=== PATIENT | male | born 1955 | race Caucasian/White ===

== ENCOUNTER 2018-10-06 20:56 | Emergency (ER) | payer OTHER ==
--- NOTE | 2018-10-06 21:17 | EDPHY ---
H & P Stated Complaint: multiple puncture wounds left hand from catbite Time Seen by Provider: 10/06/18 21:08 HPI/ROS: CHIEF COMPLAINT: Cat bite HISTORY OF PRESENT ILLNESS: Patient is a 63-year-old man whose cat bit him on the left hand. He has 3-4 small puncture wounds to the dorsum of his left hand. He is confident that the cat's teeth did not break and declines x-rays. He is concerned because he had a previous cat bite a few years ago the got infected. He states that both his mom and dad have also had cat bite wounds that have been infected. The bite occurred about 1 hour ago. Severity: Moderate Modifying factors: None REVIEW OF SYSTEMS: Constitutional: denies: chills, fever, recent illness, recent injury EENTM: denies: blurred vision, double vision, nose congestion Respiratory: denies: cough, shortness of breath Cardiac: denies: chest pain, irregular heart rate, lightheadedness, palpitations Gastrointestinal/Abdominal: denies: abdominal pain, diarrhea, nausea, vomiting, blood streaked stools Genitourinary: denies: dysuria, frequency, hematuria, pain Musculoskeletal: denies: joint pain, muscle pain Skin: See HPI Neurological: denies: headache, numbness, paresthesia, tingling, dizziness, weakness Hematologic/Lymphatic: denies: blood clots, easy bleeding, easy bruising Immunologic/allergic: denies: HIV/AIDS, transplant 10 systems reviewed and negative except as noted EXAM: GENERAL: Well-appearing, well-nourished and in no acute distress. HEAD: Atraumatic, normocephalic. EYES: Pupils equal round and reactive to light, extraocular movements intact, sclera anicteric, conjunctiva are normal. ENT: TMs normal, nares patent, oropharynx clear without exudates. Moist mucous membranes. NECK: Normal range of motion, supple without lymphadenopathy or JVD. LUNGS: Breath sounds clear to auscultation bilaterally and equal. No wheezes rales or rhonchi. HEART: Regular rate and rhythm without murmurs, rubs or gallops. ABDOMEN: Soft, nontender, normoactive bowel sounds. No guarding, no rebound. No masses appreciated. BACK: No CVA tenderness, no spinal tenderness, step-offs or deformities EXTREMITIES: Normal range of motion, no pitting or edema. No clubbing or cyanosis. NEUROLOGICAL: Cranial nerves II through XII grossly intact. Normal speech, normal gait. 5/5 strength, normal movement in all extremities, normal sensation , normal reflexes PSYCH: Normal mood, normal affect. SKIN: 3-4 small puncture wounds to dorsum of left hand. Appear shallow. No palpable foreign body. No bleeding. Source: Patient Exam Limitations: No limitations - Personal History Current Tetanus Diphtheria and Acellular Pertussis (TDAP): Yes Tetanus Vaccine Date: 03/2015 - Medical/Surgical History Hx Asthma: No Hx Chronic Respiratory Disease: No Hx Diabetes: No Hx Cardiac Disease: No Hx Renal Disease: No Hx Cirrhosis: No Hx Alcoholism: No Hx HIV/AIDS: No Hx Splenectomy or Spleen Trauma: No Other PMH: prediabetic,high cholesterol,knee surgery - Family History Significant Family History: No pertinent family hx - Social History Smoking Status: Never smoked Alcohol Use: None Constitutional: Initial Vital Signs Temperature (C) 36.9 C 10/06/18 21:06 Heart Rate 86 10/06/18 21:06 Respiratory Rate 16 10/06/18 21:06 Blood Pressure 152/108 H 10/06/18 21:06 O2 Sat (%) 94 10/06/18 21:06 O2 Delivery Mode Room Air Allergies/Adverse Reactions: erythromycin base Allergy (Verified 10/06/18 21:06) Home Medications: Medication Instructions Recorded Amoxicillin/Clavulanate Pot 875 mg PO BID #14 tab 10/06/18 [Augmentin 875Mg] Lipitor 10/06/18 Metformin HCl 10/06/18 Medical Decision Making ED Course/Re-evaluation: The patient's bite wounds are rather superficial. We discussed the rate of infection associated with cat bites which is low. He has however had worried because of his and his family's personal history of infections. Will irrigate the wounds thoroughly and treat with antibiotic ointment and dressings. Agreed to prescribe Augmentin for him to begin in the next day or 2 if he develops symptoms consistent with infection. We discussed these. He is comfortable with this plan. He refuses x-rays to rule out foreign body. Differential Diagnosis: Partial list of the Differential diagnosis considered include but were not limited to; cat bite, foreign body and although unlikely based on the history and physical exam, I also considered tendon injury, vascular injury. I discussed these differential diagnoses and the plan with the patient as well as the usual and expected course. The patient understands that the diagnosis is provisional and that in medicine we are not always correct and that further workup is often warranted. Usual and customary warnings were given. All of the patient's questions were answered. The patient was instructed to return to the emergency department should the symptoms at all worsen or return, otherwise to followup with the physician as we discussed. Departure - Departure Disposition: Home, Routine, Self-Care Clinical Impression: Cat bite of left hand Qualifiers: Encounter type: initial encounter Qualified Code(s): S61.452A - Open bite of left hand, initial encounter; W55.01XA - Bitten by cat, initial encounter; W55.01XA - Bitten by cat, initial encounter Condition: Fair Instructions: Animal Bite (ED) Additional Instructions: If your wounds begin showing signs of infection began taking the Augmentin as discussed. Referrals: Anabel Gonzalez [Primary Care Provider] - As per Instructions Prescriptions: Amoxicillin/Clavulanate Pot [Augmentin 875Mg] 875 mg PO BID #14 tab
[2018-10-06 21:36] VITALS: BP 148/96
== END 2018-10-06 21:34 | disposition home or self-care (01) ==
LOC: CED 20:56
DX: S61.452A Open bite of left hand, initial encounter (principal); W55.01XA Bitten by cat, initial encounter; R73.03 Prediabetes; E78.00 Pure hypercholesterolemia, unspecified
CPT/HCPCS: 99283-ER